=== PATIENT | female | born 1980 | race American Indian/Alaskan Native ===

== ENCOUNTER 2021-06-22 16:12 | Emergency (ER) | payer SELFPAY ==
[2021-06-22 17:21] LABS: Basophils % (Auto) 0.4 % (0.0-1.8); Eosinophils % (Auto) 0.7 % (0.0-4.3); Hematocrit 38.8 % (30.3-42.9); Hemoglobin 12.8 gm/dl (10.1-14.3); Lymphocytes % (Auto) 33.7 % (13.4-35.0); Mean Corpuscular HGB Conc 33 % (30-34); Mean Corpuscular Volume 93 fl (79-97); Monocytes # (Auto) 0.4 K/mm3 (0.0-0.8); Monocytes % (Auto) 7.1 % (0.0-7.3); Platelet Count 265 K/mm3 (140-440); Red Blood Count 4.17 M/mm3 (3.65-5.03); Red Cell Distribution Width 13.7 % (13.2-15.2)
[2021-06-22 17:33] LABS: Alanine Aminotransferase 19 units/L (7-56); Albumin 4.2 g/dL (3.9-5); Blood Urea Nitrogen 7 mg/dL (7-17); Hemolysis Index 59
[2021-06-22 17:34] LABS: BUN/Creatinine Ratio 14
[2021-06-22] MEDS ORDERED: fentaNYL 100 MCG/2 ML INJ IV ONE (17:35)
[2021-06-22] MEDS ORDERED: ONDANSETRON 4 MG/2 ML INJ IV ONE (17:35)
--- NOTE | 2021-06-22 17:53 | Emergency Department Report ---
HPI - General Chief Complaint: Abdominal Pain Time Seen by Provider: 06/22/21 17:03 - [facility] HPI: Reassessment 2 The patient is a 40-year-old female present with a chief complaint of abdominal pain. Patient developed diffuse abdominal pain this morning. Has been no history of nausea/vomiting or fever. Patient denies dysuria or hematuria. Of note the patient has not had a cycle in the past 3-months. Patient was seen by [employer] (patient and visitor both do not recall the name of the physician or group) approximately 3 weeks ago had an ultrasound performed which showed for uterine fibroids. Patient denies dysuria or hematuria. Patient denies history of fever. Patient currently complains of moderate pain ED Past Medical Hx - Past Medical History Previous Medical History?: No - Surgical History Past Surgical History?: No - Family History Family history: no significant - Social History Smoking Status: Never Smoker Substance Use Type: None (Denies illicit drug use) - Medications Home Medications: Home Medications Medication Instructions Recorded Confirmed Last Taken Type HYDROcodone/APAP 5-325 [[place] 1 - 2 each PO Q6HR PRN #14 tablet 06/22/21 Unknown Rx 5/325] Ibuprofen [Motrin 800 MG tab] 800 mg PO Q8HR PRN #20 tablet 06/22/21 Unknown Rx ED Review of Systems ROS: Stated complaint: SEVERE PAIN FIBROIDS Other details as noted in HPI Constitutional: denies: fever Eyes: denies: eye pain ENT: denies: throat pain Respiratory: no symptoms reported Cardiovascular: denies: chest pain Endocrine: no symptoms reported Gastrointestinal: abdominal pain. denies: nausea, vomiting Genitourinary: abnormal menses. denies: dysuria, hematuria Musculoskeletal: denies: back pain Neurological: denies: headache Physical Exam - Physical Exam Vital Signs: Vital Signs 06/22/21 16:29 Pulse Rate 89 Respiratory 20 Rate Blood Pressure 149/94 [Right] O2 Sat by Pulse 100 Oximetry Physical Exam: GENERAL: The patient is well-developed well-nourished female sitting in chair appearing to be in mild discomfort. [] HEENT: Normocephalic. Atraumatic. Extraocular motions are intact. Patient has moist mucous membranes. NECK: Supple. Trachea midline CHEST/LUNGS: Clear to auscultation. There is no respiratory distress noted. HEART/CARDIOVASCULAR: Regular. There is no tachycardia. There is no gallop rub or murmur. ABDOMEN: Abdomen is soft, with tenderness to palpation in the right lower quadrant, suprapubic and left lower quadrant. Mild discomfort to palpation in epigastric region. There is no rebound or guarding. Patient has normal bowel sounds. There is no abdominal distention. SKIN: There is no rash. There is no edema. There is no diaphoresis. NEURO: The patient is awake, alert, and oriented. The patient is cooperative. The patient has no focal neurologic deficits. The patient has normal speech MUSCULOSKELETAL: There is some left CVA tenderness. There is no evidence of acute injury. ED Course Vital Signs 06/22/21 16:29 Pulse Rate 89 Respiratory 20 Rate Blood Pressure 149/94 [Right] O2 Sat by Pulse 100 Oximetry ED Medical Decision Making - Lab Data Result diagrams: 06/22/21 16:56 06/22/21 16:56 Laboratory Tests 06/22/21 06/22/21 06/22/21 16:56 16:56 16:56 WBC 5.9 RBC 4.17 Hgb 12.8 Hct 38.8 MCV 93 MCH 31 MCHC 33 RDW 13.7 Plt Count 265 Lymph % (Auto) 33.7 [place] % (Auto) 7.1 Eos % (Auto) 0.7 Baso % (Auto) 0.4 Lymph # (Auto) 2.0 [place] # (Auto) 0.4 Eos # (Auto) 0.0 Baso # (Auto) 0.0 Seg Neutrophils % 58.1 Seg Neutrophils # 3.5 Sodium 137 Potassium 4.4 Chloride 103.5 Carbon Dioxide 24 Anion Gap 14 BUN 7 Creatinine 0.5 L Estimated GFR > 60 BUN/Creatinine Ratio 14 Glucose 128 H Calcium 9.0 Total Bilirubin 0.30 AST 23 ALT 19 Alkaline Phosphatase 46 Total Protein 6.8 Albumin 4.2 Albumin/Globulin Ratio 1.6 HCG, Qual Negative Urine Color Urine Turbidity Urine pH Ur Specific [place] Urine Protein Urine Glucose (UA) Urine Ketones Urine Blood Urine Nitrite Urine Bilirubin Urine Urobilinogen Ur Leukocyte Esterase Urine WBC (Auto) Urine RBC (Auto) U Epithel Cells (Auto) Amorphous Crystals Urine Mucus 06/22/21 19:18 WBC RBC Hgb Hct MCV MCH MCHC RDW Plt Count Lymph % (Auto) [place] % (Auto) Eos % (Auto) Baso % (Auto) Lymph # (Auto) [place] # (Auto) Eos # (Auto) Baso # (Auto) Seg Neutrophils % Seg Neutrophils # Sodium Potassium Chloride Carbon Dioxide Anion Gap BUN Creatinine Estimated GFR BUN/Creatinine Ratio Glucose Calcium Total Bilirubin AST ALT Alkaline Phosphatase Total Protein Albumin Albumin/Globulin Ratio HCG, Qual Urine Color Yellow Urine Turbidity Hazy Urine pH 8.0 H Ur Specific [place] 1.010 Urine Protein <15 mg/dl Urine Glucose (UA) Neg Urine Ketones Neg Urine Blood Neg Urine Nitrite Neg Urine Bilirubin Neg Urine Urobilinogen < 2.0 Ur Leukocyte Esterase Neg Urine WBC (Auto) 2.0 Urine RBC (Auto) 1.0 U Epithel Cells (Auto) 2.0 Amorphous Crystals Few Urine Mucus Few - Radiology Data Radiology results: report reviewed (CT abdomen pelvis), image reviewed (CT abdomen pelvis) [facility] [address] [place] [address] Cat Scan Report Signed Patient: LORRI BANUELOS MR#: [id number] : 1980 Acct:[id number] Age/Sex: 40 / F ADM Date: 06/22/21 Loc: ED Attending Dr: Ordering Physician: REG ANDREWS MD Date of Service: 06/22/21 Procedure(s): CT abdomen pelvis w con Accession Number(s): [id number] cc: REG ANDREWS MD CT ABDOMEN AND PELVIS WITH CONTRAST HISTORY: Diffuse abdominal pain COMPARISON: None TECHN IQUE: Routine abdominal and pelvic CT exam performed following intravenous contrast administration.. All CT scans at this location are performed using CT dose reduction for ALARA by sd ans of automated exposure control. FINDINGS: The visualized lung bases are clear. There are some areas of tiny hypoattenuation in the liver suggesting tiny cysts. The gallbladder, pancreas, kidneys, adrenal glands, and spleen all appear normal. There is wall thickening and edema throughout the stomach suggesting gastritis. There is no free air. The appendix is normal. There is a 3.4 cm left ovarian cyst. There is also a 4.4 cm cystic lesion in the region of the cervix. There is also some enlargement of the uterus with multiple heterogeneous masses suggesting uterine fibroids. There are no aggressive appearing bone lesions. IMPRESSION: 1. Wall thickening and edema in the wall of the stomach suggesting gastritis. No obstruction or free air. 2. Large cystic area in the region of the cervix could potentially represent an infected nabothian or Gilmer's duct cyst. 3. Multiple uterine myometrial masses suggest multiple uterine fibroids. 4. There is also a 3.4 cm left ovarian cyst. Signer Name: Jimbo Franco MD Signed: 06/22/2021 8:37 PM Workstation Name: [id number] Transcribed By: LAURA Dictated By: Jimbo Franco MD Electronically Authenticated By: Jimbo Franco MD Signed Date/Time: 06/22/212036 DD/ 33 TD/TT: Print Cancel - Differential Diagnosis Uterine fibroids, diverticulitis, UTI, colitis Critical care attestation.: If time is entered above; I have spent that time in minutes in the direct care of this critically ill patient, excluding procedure time. ED Disposition Clinical Impression: Acute abdominal pain, Fibroid uterus, Left ovarian cyst Disposition: 01 HOME / SELF CARE / HOMELESS Is pt being admited?: No Does the pt Need Aspirin: No Condition: Stable Instructions: Abdominal Pain (ED) Additional Instructions: Return to the emergency department should you develop worsening symptoms, inability to tolerate food or liquids, high fever or any other concerns Prescriptions: Ibuprofen [Motrin 800 MG tab] 800 mg PO Q8HR PRN #20 tablet PRN Reason: Pain, Moderate (4-6) HYDROcodone/APAP 5-325 [[place] 5/325] 1 - 2 each PO Q6HR PRN #14 tablet PRN Reason: Pain Referrals: Your, [employer] [Other] - 2-3 Days Time of Disposition: 20:48
[2021-06-22 20:02] LABS: Amorphous Crystals,Urine Few; Bilirubin,Urine NEG (Negative); Blood,Urine NEG (Negative); Color,Urine Yellow (Yellow); Mucus,Urine FEW /HPF; Protein,Urine <15 mg/dL mg/dL (Negative); Urobilinogen,Urine < 2.0 mg/dL (<2.0)
--- NOTE | 2021-06-22 20:42 | Cat Scan Report ---
CT ABDOMEN AND PELVIS WITH CONTRAST HISTORY: Diffuse abdominal pain COMPARISON: None TECHNIQUE: Routine abdominal and pelvic CT exam performed following intravenous contrast administrat ion.. All CT scans at this location are performed using CT dose reduction for ALARA by means of autom ated exposure control. FINDINGS: The visualized lung bases are clear. There are some areas of tiny hypoattenuation in the liver suggesting tiny cysts. The gallbladder, ramirez creas, kidneys, adrenal glands, and spleen all appear normal. There is wall thickening and edema throughout the stomach suggesting gastritis. There is no free air. The appendix is normal. There is a 3.4 cm left ovarian cyst. There is also a 4.4 cm cystic lesion in the region of the cervix. There is also some enlargement of the uterus with multiple heterogeneous m asses suggesting uterine fibroids. There are no aggressive appearing bone lesions. IMPRESSION: 1. Wall thickening and edema in the wall of the stomach suggesting gastritis. No obstruction or free air. 2. Large cystic area in the region of the cervix could potentially represent an infected nabothian or Gilmer's duct cyst. 3. Multiple uterine myometrial masses suggest multiple uterine fibroids. 4. There is also a 3.4 cm left ovarian cyst. Signer Name: Jimbo Franco MD Signed: 06/22/2021 8:37 PM Workstation Name: [id number]
[2021-06-22 21:09] VITALS: BP 138/88
== END 2021-06-22 21:07 | disposition home or self-care (01) ==
LOC: ED 16:12
DX: D25.9 Leiomyoma of uterus, unspecified (principal); N83.202 Unspecified ovarian cyst, left side
CPT/HCPCS: 36415; 74177; 80053; 81001; 84703; 85025; 96374; 96375; 99284; J2405; J3010; Q9967